=== PATIENT | male | born 1995 | race Native Hawaiian/Other Pacific Islander ===

== ENCOUNTER 2022-02-04 14:03 | Emergency (ER) | payer OTHER ==
[~2022-02-04] VITALS: Ht 172.7 cm; Wt 62.6 kg
[2022-02-04 14:25] VITALS: BP 106/60; TEMP 98.3
[2022-02-04] MEDS ORDERED: CLINDAMYCIN HY300 MG PO (15:00)
== END 2022-02-04 15:58 | disposition home or self-care (01) ==
LOC: ED 14:03
DX: K02.9 Dental caries, unspecified (principal); M27.3 Alveolitis of jaws
CPT/HCPCS: 96365; 96375; 99284; J1885; J3490